=== PATIENT | female | born 1975 | race Caucasian/White ===

== ENCOUNTER → 2020-11-06 15:33 | Outpatient (BNVA) | payer BC, SELFPAY | PROVIDERS: Visit Provider Family Medicine | DX: E34.9 Endocrine disorder, unspecified (principal) | CPT/HCPCS: 82672; 84144; 84403 ==

== ENCOUNTER → 2020-12-05 14:17 | Outpatient (BNVA) | payer BC, SELFPAY | PROVIDERS: PCP Family Medicine; Visit Provider Specialist | DX: R56.9 Unspecified convulsions (principal); F17.210 Nicotine dependence, cigarettes, uncomplicated | CPT/HCPCS: 99204 ==

== ENCOUNTER → 2020-12-31 12:59 | Outpatient (BNVA) | payer BC, SELFPAY | PROVIDERS: PCP Family Medicine; Visit Provider Specialist | DX: R56.9 Unspecified convulsions (principal); F17.210 Nicotine dependence, cigarettes, uncomplicated | CPT/HCPCS: 95816 ==

== ENCOUNTER → 2021-01-15 13:26 | Outpatient (BNVA) | payer BC, SELFPAY | PROVIDERS: PCP Family Medicine; Visit Provider Specialist | DX: G40.909 Epilepsy, unspecified, not intractable, without status epilepticus (principal); F17.210 Nicotine dependence, cigarettes, uncomplicated | CPT/HCPCS: 99214 ==

== ENCOUNTER 2021-01-20 17:11 | Outpatient (CLI) | payer BC, SELFPAY ==
--- NOTE | 2021-01-20 17:30 | MR_ITS ---
WS: [id number] MRI HEAD WITHOUT CONTRAST TECHNIQUE: Sagittal T1, T2 axial, T2 axial FLAIR, axial and coronal T1 images, axial susceptibility w eighted imaging, axial diffusion weighted images, and coronal T2 images were obtained. CLINICAL INFORMATION: R56.9 - Unspecified convulsions COMPARISON: None. FINDINGS: No evidence of restricted diffusion to suggest acute ischemia. Ventricular system and basal cisterns are patent. Moderate patchy periventricular supratentorial white matter changes. Mild white matter ch anges in the racheal. No significant parenchymal volume loss. No evidence of mass or mass effect. No ext ra-axial fluid collections. No hemosiderin on susceptibly weighted images. Normal posterior fossa. Normal vascular flow voids at the skull base. Mild mucosal thickening in the paranasal sinuses. Mastoid air cells well aerated. Temporal lobes and hippocampal formations are normal in appearance. No evidence of mesial temporal sc lerosis or asymmetric hippocampal atrophy. No signal abnormalities in the mesial temporal lobe. Jeana l optic chiasm and pituitary infundibulum. Normal cavernous sinuses and Meckel's cave. MR/MR head wo con* [id number] IMPRESSION: 1. No evidence of restricted diffusion to suggest acute ischemia. 2. Moderate patchy periventricular supratentorial white matter changes some in a pericallosal distribution. Findings are nonspecific in a patient this age an d differential considerations are broad and include demyelinating disease, Lyme disease, small vessel changes including hypertension diabetes, and collagen va scular disease. 3. No significant parenchymal volume loss. 4. Mild small vessel changes in the racheal. 5. No significant thinning of the corpus callosum. No focal callosal lesions. 6. Temporal lobes and hippocampal formations are normal in appearance. No evid ence of asymmetric hippocampal atrophy or mesial temporal sclerosis. 7. No hemosiderin on the susceptibly weighted images.
== END 2021-01-20 17:12 | disposition home or self-care (01) ==
PROVIDERS: PCP Family Medicine; Visit Provider Specialist
DX: R56.9 Unspecified convulsions (principal)
CPT/HCPCS: 70551

== ENCOUNTER → 2021-02-26 10:06 | Outpatient (BNVA) | payer BC, SELFPAY | PROVIDERS: PCP Family Medicine; Visit Provider Specialist | DX: G40.209 Localization-related (focal) (partial) symptomatic epilepsy and epileptic syndromes with complex partial seizures, not intractable, without status epilepticus (principal); G37.9 Demyelinating disease of central nervous system, unspecified; G31.84 Mild cognitive impairment of uncertain or unknown etiology; F32.9 Major depressive disorder, single episode, unspecified; G43.711 Chronic migraine without aura, intractable, with status migrainosus; F17.210 Nicotine dependence, cigarettes, uncomplicated | CPT/HCPCS: 99215 ==

== ENCOUNTER 2021-02-26 12:48 | Outpatient (CLI) | payer BC, SELFPAY ==
[2021-02-26 14:29] LABS: C Reactive Protein 5.5 mg/L (0.0-4.9)
[2021-02-26 14:50] LABS: Erythrocyte Sedimentation Rate 21 mm/hr (0-15)
[2021-02-27 11:47] LABS: COMPLEMENT COMPONENT C3C 160 mg/dL (83-193); COMPLEMENT COMPONENT C4C 28 mg/dL (15-57); Lymes IGG WB <0.90 index
[2021-02-27 12:52] LABS: CENTROMERE B ANTIBODY <1.0 NEG AI (<1.0 NEG); JO-1 ANTIBODY <1.0 NEG AI (<1.0 NEG); RNP ANTIBODY 2.1 POS AI (<1.0 NEG); SCL-70 ANTIBODY <1.0 NEG AI (<1.0 NEG); SJOGREN'S ANTIBODY (SS-A) <1.0 NEG AI (<1.0 NEG); SM ANTIBODY <1.0 NEG AI (<1.0 NEG); SS-B <1.0 NEG AI (<1.0 NEG)
[2021-02-27 13:57] LABS: THYROID PEROXIDASE ANTIBODIES <1 IU/mL (<9)
[2021-02-27 14:32] LABS: ANA SCREEN, IFA NEGATIVE (NEGATIVE)
[2021-03-01 02:12] LABS: DNA AB (DS) CRITHIDIA,IFA NEGATIVE (NEGATIVE)
== END 2021-02-26 12:49 | disposition home or self-care (01) ==
LOC: LAB 12:53
PROVIDERS: PCP Family Medicine; Visit Provider Specialist
DX: G37.9 Demyelinating disease of central nervous system, unspecified (principal)
CPT/HCPCS: 36415; 85651; 86140; 86160; 86162; 86235; 86255; 86376; 86617

== ENCOUNTER → 2021-06-25 15:00 | Outpatient (BNVA) | payer BC, SELFPAY | PROVIDERS: PCP Family Medicine; Visit Provider Family Medicine | DX: G40.909 Epilepsy, unspecified, not intractable, without status epilepticus (principal); R89.9 Unspecified abnormal finding in specimens from other organs, systems and tissues; K52.9 Noninfective gastroenteritis and colitis, unspecified; R53.83 Other fatigue; T50.B95A Adverse effect of other viral vaccines, initial encounter; R53.82 Chronic fatigue, unspecified | CPT/HCPCS: 80053; 82306; 82607; 82784; 83516; 84443; 85025 ==

== ENCOUNTER → 2022-07-22 13:59 | Outpatient (BNVA) | payer BC, SELFPAY | PROVIDERS: PCP Family Medicine; Visit Provider Internal Medicine | DX: M35.9 Systemic involvement of connective tissue, unspecified (principal); R53.82 Chronic fatigue, unspecified; M25.50 Pain in unspecified joint | CPT/HCPCS: 36415; 80053; 82306; 82550; 82607; 83516; 84425; 85025; 85651; 86140; 86200; 86431; 86480; 86704; 86803; 87340 ==

== ENCOUNTER → 2022-08-26 16:05 | Outpatient (BNVA) | payer BC, SELFPAY | PROVIDERS: PCP Family Medicine; Visit Provider Internal Medicine | DX: M35.1 Other overlap syndromes (principal); M54.2 Cervicalgia; M25.519 Pain in unspecified shoulder; R21 Rash and other nonspecific skin eruption | CPT/HCPCS: 36415; 72040; 80053; 82533; 84443; 85025; 85651; 86140 ==

== ENCOUNTER → 2022-12-03 12:30 | Outpatient (BNVA) | payer BC, SELFPAY | PROVIDERS: PCP Family Medicine; Visit Provider Registered Nurse Neonatal Intensive Care | DX: S69.92XA Unspecified injury of left wrist, hand and finger(s), initial encounter (principal); W19.XXXA Unspecified fall, initial encounter | CPT/HCPCS: 73030; 73110 ==

== ENCOUNTER → 2024-03-07 14:38 | Outpatient (BNVA) | payer BC, SELFPAY | PROVIDERS: PCP Family Medicine; Visit Provider Family Medicine | DX: E34.9 Endocrine disorder, unspecified (principal); R56.9 Unspecified convulsions; M79.7 Fibromyalgia; R53.83 Other fatigue; R74.8 Abnormal levels of other serum enzymes; G62.9 Polyneuropathy, unspecified; J45.909 Unspecified asthma, uncomplicated; G40.909 Epilepsy, unspecified, not intractable, without status epilepticus; F32.9 Major depressive disorder, single episode, unspecified; G47.00 Insomnia, unspecified | CPT/HCPCS: 80053; 80061; 82306; 82607; 83036; 83735; 84443; 85025 ==